=== PATIENT | male | born 1975 | race Caucasian/White ===

== ENCOUNTER → 2021-09-07 | Outpatient (CLI) | payer BC, OTHER ==
[~2021-09-07] MED LIST: CATHETER FLUSH 10 ML SYR IV PRN; HOLD METFORMIN - RECEIVED CONTRAST 20 ML VIAL IV SCH; IOHEXOL 350 MG/ML 100 ML (OMNIPAQUE 350) VIAL IV ONE; NS 100 ML (IVPB) BAG IV ONE
--- NOTE | 2021-09-07 12:14 | Diagnostic Imaging Report ---
1. CT head with and without contrast. 2. CTA orbits with and without contrast. 3. CTA head with and without contrast. TECHNIQUE: Noncontrast CT of the head and orbits was performed. Subsequently after intravenous administration of contrast, thin section axial CT angiography of the head was acquired and reformatted into multiple reconstructions including 3-D reformats. Subsequently, postcontrast CT imaging of the head and orbits was obtained. All CT scans use one or more of the following dose optimizing techniques: automated exposure control, MA and/or KvP adjustment based on patient size and exam type or iterative reconstruction.. COMPARISON: None available INDICATION: Double vision. Evaluate for compressive mass. 6 versus 4th nerve palsy. FINDINGS: The noncontrast CT of the head demonstrates no evidence of an acute intracranial abnormality. There are no findings of intracranial hemorrhage. There is no intracranial mass effect or shift. There is no hydrocephalus. There is no abnormal extra-axial collection. Garcia-white matter differentiation are well-maintained. There are no findings of vasogenic edema. The posterior fossa appears appropriate. The basilar cisterns are patent. The mastoid air cells are clear. The paranasal sinuses appear clear. The CT of the orbits demonstrates unremarkable morphology of the globes. The lens is appropriately positioned. There is no abnormal intraocular density. The extraocular muscles are appropriate in size and morphology. There are no findings of a retrobulbar mass or abnormal inflammatory induration within the retrobulbar fat. CT angiogram demonstrates appropriate flow within the distal cervical segments of the internal carotid arteries. The intracranial component of the internal carotid arteries demonstrate mild atherosclerotic plaquing without findings of significant stenosis. Both of the ophthalmic arteries appear patent. There is patent flow to the level of the carotid terminus. There is normal flow within the M1 segment of both the middle cerebral arteries. No M2 branch occlusion. Anterior cerebral arteries and anterior communicating artery appear unremarkable. Within the posterior circulation both of the vertebral arteries are patent. There are patent posterior inferior cerebral arteries. There are patent anterior inferior cerebral arteries. The superior cerebral arteries are patent as are both of the posterior cerebral arteries. There are no findings of intracranial aneurysm formation. There is a moderate size right-sided posterior communicating artery. On postcontrast imaging there are no CT findings of pathologic intracranial enhancement. The dural venous sinuses appear patent. The cavernous sinuses appear symmetric. Both of the cavernous sinuses enhance normally. The pituitary gland is unremarkable. There are no findings of mass effect on the optic chiasm. There is no abnormal intraorbital enhancement demonstrated. IMPRESSION: 1. No CT findings of an acute intracranial abnormality. 2. No pathologic intracranial enhancement. 3. Cavernous sinuses enhance normally. The pituitary gland is unremarkable without evidence of mass effect on the optic chiasm. 4. Unremarkable CT appearance of the orbits. 5. CTA demonstrates minimal intracranial atherosclerosis within the internal carotid arteries. There are no findings of intracranial large vessel occlusion. No significant intracranial stenosis evident. 6. No CTA evidence of intracranial aneurysm formation. Dictated by: Dictated on workstation # [id number]
== END ==
LOC: RAD 11:30
PROVIDERS: ATTEND Optometrist
DX: H53.2 Diplopia (principal)
CPT/HCPCS: 70470; 70482